=== PATIENT | male | born 1990 ===

== ENCOUNTER 2022-09-09 03:10 | Emergency (ER) | payer MEDICAID ==
[~2022-09-09] VITALS: Ht 190.5 cm; Wt 75.7 kg
[2022-09-09 03:10] VITALS: BP 145/98
--- NOTE | 2022-09-09 03:10 | NUR ---
WINNIE RYAN, PREBOOK. TAKEN TO CHAIR
--- NOTE | 2022-09-09 03:16 | NUR ---
Dr. Lmeus examining patient.
--- NOTE | 2022-09-09 03:40 | NUR ---
Patient D/C to custody.
== END 2022-09-09 03:40 ==
LOC: MED 03:10
DX: F20.9 Schizophrenia, unspecified (principal); F19.10 Other psychoactive substance abuse, uncomplicated; Z02.89 Encounter for other administrative examinations; Z86.19 Personal history of other infectious and parasitic diseases
CPT/HCPCS: 99283